=== PATIENT | male | born 1945 | race Caucasian/White ===

== ENCOUNTER 2017-02-01 09:56 | Inpatient (IN) ==
--- NOTE | 2017-01-31 21:13 | Discharge Summary ---
<Arabella Cage - Last Filed: 01/31/17 21:10> Date of Encounter: 01/31/17 - Discharge Diagnosis (1) Arthritis of right knee Priority: Primary Status: Chronic (2) IDANIA (obstructive sleep apnea) Priority: Secondary Status: Chronic (3) Diabetes mellitus Priority: Secondary Status: Acute Qualifiers: Diabetes mellitus type: type 2 Diabetes mellitus complication status: with unspecified complications Diabetes mellitus jail insulin use: without jail use Qualified Code(s): E11.8 - Type 2 diabetes mellitus with unspecified complications (4) BMI 40.0-44.9, adult Priority: Secondary Status: Chronic - Discharge Medications Home Medications: Aspirin Enteric Coated [Aspirin EC] 325 mg PO QAM #21 tablet. 01/31/17 [Rx] OxyCODONE Immed Rel [Roxicodone 5 MG] 5 - 10 mg PO Q6HR PRN #40 tablet 01/31/17 [Rx] Glimepiride [Amaryl] 4 mg PO BID 02/01/17 [History] Meloxicam [Mobic] 15 mg PO DAILY PRN 02/01/17 [History] Metformin HCl [Glucophage] 1,000 mg PO BID 02/01/17 [History] Allergies/Adverse Reactions: Allergies No Known Allergies Allergy (Unverified 11/28/16 10:55) Primary care physician: PCP NO - Patient Status Disposition: Home, Self-Care Condition: Good - Discharge Instructions Follow Up With: NO,PCP [Primary Care Provider] - - Hospital Course Hospital course: Mr. Chamorro is a 72 year old male - Time Spent with Patient Total time spent providing and/or coordinating discharge services: - VTE Documentation of Mechanical Device: Venous foot pump, device <Nick Mujica - Last Filed: 02/03/17 06:45> Date of Encounter: 02/03/17 Time of Encounter: 06:44 - Discharge Diagnosis (1) Arthritis of right knee Priority: Primary Status: Acute (2) IDANIA (obstructive sleep apnea) Priority: Secondary Status: Chronic (3) Diabetes mellitus Priority: Secondary Status: Chronic Qualifiers: Diabetes mellitus type: type 2 Diabetes mellitus complication status: with unspecified complications Diabetes mellitus exterminator helper insulin use: without exterminator helper use Qualified Code(s): E11.8 - Type 2 diabetes mellitus with unspecified complications (4) BMI 40.0-44.9, adult Priority: Secondary Status: Chronic (5) Status post total right knee replacement Priority: Primary Status: Acute Primary care physician: PCP NO - Patient Status Functional capacity at discharge: uses cane/walker Overall status at discharge: patient is progressing back to baseline - Hospital Course Hospital course: Mr. Chamorro is a 72 year old male Status post right total knee replacement. The patient had an uneventful postoperative course. They received antibiotics and physical therapy and were discharged in stable condition. There will follow -up in the office in 2 weeks. Patient will be on aspirin for DVT prophylaxis. - Time Spent with Patient Total time spent providing and/or coordinating discharge services:
--- NOTE | 2017-01-31 21:16 | Physician Discharge Referral ---
Home Health/Hosp Referral Info Transfer to: Home Health Attending Provider: Dr. Nick Mujica - Diagnosis (1) Status post total right knee replacement Priority: Primary Status: Acute (2) Arthritis of right knee Priority: Secondary Status: Chronic (3) IDANIA (obstructive sleep apnea) Priority: Secondary Status: Chronic (4) Diabetes mellitus Priority: Secondary Status: Chronic (5) BMI 40.0-44.9, adult Priority: Secondary Status: Chronic - Respiratory Orders Smoking Cessation: Smoking cessation has been advised. For more information, call the [place] Tobacco Quit Line at 8-481-QIIW-NOW. - Dressing/Wound Care Site: right knee Type of Dressing/Treatments w/Frequency: Opsite placed. Keep dressing intact until first follow up appointment. If > 50% saturated, notify office, remove dressing and place appropriate dressing back in place. Dressing is water resistant, not water-proof. OK to shower, but do not get dressing wet. - Diet/Nutrition Diet/Nutrition Orders: Regular - Activity Activity Orders: Ambulate, Chair, Walker Activity: List: Total Knee replacement Precautions x 6 weeks Apply cold therapy wrap 3-6x/day for 20 minutes at a time. Encourage ambulation throughout the day and incentive spirometer 10x/hour. Elevate affected extremity above heart as tolerated. Brace: Wear knee immobilizer at night x 2 weeks. - Services Needed Following services are medically necessary services: Physical Therapy, Occupational Therapy - Transfer Medications Prescriptions: OxyCODONE Immed Rel [Roxicodone 5 MG] 5 - 10 mg PO Q6HR PRN #40 tablet PRN Reason: Pain Aspirin Enteric Coated [Aspirin EC] 325 mg PO QAM #21 tablet. Home Medications: Aspirin Enteric Coated [Aspirin EC] 325 mg PO QAM #21 tablet. 01/31/17 [Rx] OxyCODONE Immed Rel [Roxicodone 5 MG] 5 - 10 mg PO Q6HR PRN #40 tablet 01/31/17 [Rx] Allergies/Adverse Reactions: Allergies No Known Allergies Allergy (Unverified 11/28/16 10:55) Certification: Further, I certify that my clinical findings support that this patient is homebound (i.e. absences from home require considerable and taxing effort and are for medical reasons or pentec[employer] services or infrequently or short duration when for other reasons) because: Homebound Reason: Post-surgery restriction and or conditions limit ability to leave home Attestation: My signature below is to certify that this patient is under my care and that I, or nurse practitioner, or physician music library assistant working with me, has a face-to- face encounter with this patient.
[2017-02-01] MEDS ORDERED: Gabapentin 300 MG CAPSULE PO ONE (10:26)
[2017-02-01] MEDS ORDERED: Famotidine 20 MG/2 ML VIAL IVP ONE (10:26)
[2017-02-01] MEDS ORDERED: Ringers Solution, Lactated 1,000 ML IVC SCH ×2 (10:30→15:04)
[2017-02-01] MEDS ORDERED: CeFAZolin Pre 3,000 MG/100 ML 3,000 MG/100 ML BAG IVPB ONE (10:30)
--- NOTE | 2017-02-01 10:40 | History & Physical Report ---
Date of Encounter: 02/01/17 Time of Encounter: 10:40 24 Hour HP Update - Instructions Instructions: If the History and Physical is less than 30 days old and was completed prior to A.M. admission and or procedure and has NOT been updated on calendar day of procedure please complete this update prior to performing procedure. - Update Patient reports changes in Medical Condition: No Changes in examination, assessment, or condition: No Changes in Medication: No Preop tests/diagnostics Reviewed: Yes Surgery Remains Indicated: Yes Consent for Planned Operative Procedure(s) Verified: Yes - Pre-Operative Checklist Preoperative Checklist Indicated: No Prophylactic Antibiotic Ordered: Yes Is VTE Prophylaxis Indicated?: Yes
[2017-02-01] MEDS ORDERED: *HR* Propofol 200 MG/20 ML VIAL IVP ONE (10:58)
[2017-02-01] MEDS ORDERED: Lidocaine -MPF 2% 2 ML VIAL ONE (10:59)
[2017-02-01] MEDS ORDERED: *HR* FentaNYL (PF) 100 MCG/2 ML VIAL ONE ×3 (10:59→12:52)
[2017-02-01] MEDS ORDERED: Ondansetron 4 MG/2 ML VIAL ONE (10:59)
[2017-02-01] MEDS ORDERED: Dexamethasone 4 MG/ML VIAL ONE (10:59)
[2017-02-01] MEDS ORDERED: *HR* Midazolam HCl 2 MG/2 ML VIAL ONE (10:59)
--- NOTE | 2017-02-01 11:11 | Anesthesia Evaluation PreOp ---
Date of Encounter: 02/01/17 Time of Encounter: 11:00 - Past History Planned Operation: Rt TKA Cardiac History: Denies any Significant Hx Pulmonary History: IDANIA Dx (CPAP 8) REVENUE DIRECTOR History: Denies Any Significant HX Other Medical History: Diabetes Type II, Other ([place]) Anesthesia History: No Prior Anesthetic Complications Alcohol Use: occasionally Drug use: none Medications and Allergies Aspirin Enteric Coated [Aspirin EC] 325 mg PO QAM #21 tablet. 01/31/17 [Rx] OxyCODONE Immed Rel [Roxicodone 5 MG] 5 - 10 mg PO Q6HR PRN #40 tablet 01/31/17 [Rx] Glimepiride [Amaryl] 4 mg PO BID 02/01/17 [History] Meloxicam [Mobic] 15 mg PO DAILY PRN 02/01/17 [History] Metformin HCl [Glucophage] 1,000 mg PO BID 02/01/17 [History] Allergies No Known Allergies Allergy (Unverified 11/28/16 10:55) - Meds/Allergy Pre-op Review Medications Reviewed: Yes Allergies Reviewed: Yes Beta Blockers on Current Med List: No Anesthesia Results - Labs Laboratory Tests 01/23/17 01/23/17 08:45 08:45 Hgb 15.0 Hct 44.9 Plt Count 182 Sodium 142 Potassium 4.0 BUN 13 Creatinine 0.94 - Imaging EKG: report reviewed Anesthesia Exam O2 Sat Height 71.5 cm Height 71.5 cm Height 71.5 cm Weight 145.15 kg Weight 145.15 kg Weight 145.15 kg O2 Sat by Pulse Oximetry 93 Vital Signs Temp Pulse Resp BP Pulse Ox 98.2 F 71 18 152/93 93 02/01/17 10:16 02/01/17 10:16 02/01/17 10:16 02/01/17 10:16 02/01/17 10:16 Height: 6'1 Weight: 320 lbs NPO (# of Hours): MN Pain Scale: 0 - HEENT Pupil (Motor): Pupils equal, EOMI Mallampati: III Teeth: Normal Oral Opening: Less than or equal to 3 - REVENUE DIRECTOR LOC: Oriented REVENUE DIRECTOR Motor: Normal RUE, Normal LUE, Normal RLE, Normal LLE, Normal Face REVENUE DIRECTOR Sensory: Normal: RUE, LUE, RLE, LLE, Face - Cardiac Rhythm: Regular Murmur: None JVD: No Carotid Bruit: No - Pulmonary Breath Sounds: bilateral Clear Respiratory Effort: Symmetrical Anesthesia Assess/Plan ASA Score: 3 ([place] DM IDANIA) Modified [place] Scale for Level of Consciousness: Cooperative, oriented, and tranquil Anesthetic Plan: General, Regional Monitoring Plan: Standard Monitors Recovery Plan: PACU (Discussed GA and RA, agrees to proceed)
[2017-02-01] MEDS ORDERED: Tetracaine/PF 20 MG/2 ML AMPUL ONE (11:36)
[2017-02-01] MEDS ORDERED: ROPIVACAINE HCL/PF 0.5% 30 ML VIAL ONE (11:36)
[2017-02-01] MEDS ORDERED: Bupivacaine/Clonidine Syringe 1 EACH SYRINGE ONE (11:37)
--- NOTE | 2017-02-01 12:09 | Anesthesia Procedures ---
Date of Encounter: 02/01/17 Time of Encounter: 11:08 Procedures: Anesthesia - Nerve Block Procedure Date: 02/01/17 Time: 12:00 Pre-op Diagnosis: Rt Knee OA Surgical Procedure: Rt TKA Checklist: Correct Patient Identifier Correct side: Right Blood Thinner: No Monitor Applied: EKG, BP, Pulse Oximetry Supplemental Oxygen via Nasal Cannula (L/min): 2 Sedation: Versed (mg): 2 Sedation: Fentanyl (mcg): 100 Indication: Post Op Analgesia Pre-op Neuro Deficits: No Block Type: Femoral, Other (IPACK) Catheter placed: No Depth at skin (cm): 3 Sterile Technique: Yes Ultrasound used: Yes Anatomy identified: Yes Visual spread of Local: Yes Neuro Stimulation: Yes Nerve Stimulator Range: >0.4 - 0.6 mA Blood on Needle Aspiration: No Smooth Injection of Local: Yes Pain with Injection of Local: No Prep: Chlorhexadine Needle: 22 x 50 mm Stimuplex Local: 0.25% Bupivicaine w/Clonidine 20 mcg/cc, Tetracaine (40), Ropivacaine ( 0.5%) Volume (cc): 30 Number of Attempts: 1 Complications: None/effective block Vitals: Vital Signs/O2 Sat/Glucose, Most Current Temp Pulse Resp BP Pulse Ox 02/01/17 11:56 60 18 148/91 98 02/01/17 11:38 59 16 137/96 98 02/01/17 10:16 98.2 F 71 18 152/93 93
[2017-02-01] MEDS ORDERED: *HR* Promethazine 25 MG/ML VIAL IVP PRN (12:51)
--- NOTE | 2017-02-01 13:18 | Orthopedic Operative Note ---
Date of procedure: 02/01/17 Pre-op diagnosis: right knee arthritis Post-op diagnosis: same Procedure: Procedure: Right Total knee replacement Estimated blood loss: 400 cc Hardware: Metal and polyethylene replacement. Arthrex Femur: 9 Tibia:8 PS insert: 11 Patella:40 Exam Under anesthesia: Loss of full extension 10 degrees Procedural Notes: Grade 4 arthritic changes all 3 compartments Operative procedure: The patient was brought to the operating room and placed on the operating room table. After general anesthesia was administered the operative knee was examined. Findings were noted in the exam under anesthesia. The operative extremity was prepped and draped in sterile surgical fashion. The patient received IV antibiotics prior to skin incision. A standard midline incision was made centered over the patella. The incision was made through the skin and subcutaneous tissue. A medial parapatellar tendon approach was performed. Care was taken to preserve tissue along the medial aspect of the patella. And to protect the patella tendon. The deep MCL was released off the medial tibia. The infra patella fat pad was excised. Knee was brought into flexion. Patient noted to have grade 4 arthrtic all three compartments. The entry hole was made for the intramedullary femoral guide. The guide was seated in 6 degrees of valgus. Anterior cut was made followed by the distal cut. The ACL the PCL the medial and the lateral menisci were excised. The tibia was subluxed forward. The entry hole was made for the intramedullary tibial guide. Guide was seated to resect 2 mm off the more abnormal side. The knee was brought into flexion the distal femur was sized 9. The femoral guide was seated , the anterior cut was made followed by the posterior condylar cut, followed by the chamfer cuts. The finishing guide was seated the box cut was made and the lug holes were drilled. The tibia was sized 8, the tibial tray was seated and prepared with the large drill followed by the fin cutter. Trial reduction revealed full extension no varus valgus instability with the appropriate 11 PS Diana. The patella was everted and cut was made at the level of the insertion of the quadriceps and patella tendon. The patella was sized to a 40 the guide was seated and the lug holes are drilled. Trial reduction revealed excellent patella tracking. All trial components were removed all bony surfaces were irrigated. The tibia was cemented first followed by the femur. the 11 PS Diana was seated and the knee was brought into full extension. The patella was cemented and held in place with the patellar holding clamp. After the cement had hardened, the knee sat for 2 minutes with a Betadine saline solution. The knee was then irrigated out with 2 L of pulse irrigation. The ROSANA Cage closed knee. The extensor mechanism was closed with #2 FiberWire suture and #2 PDS suture. The subcutaneous tissue was then irrigated and closed deep with #1 PDS suture superficially with 0 PDS suture and skin was closed with skin dominique. The patient was then placed in a sterile dressing and a postoperative brace extubated and transferred to recovery room in stable condition. Anesthesia: GETA Surgeon: Nick Mujica Condition: stable Disposition: PACU
[2017-02-01] MEDS: *HR* HYDROmorphone (PF) 1 MG/ML SYRINGE IVP PRN ×4 (13:56→14:14)
--- NOTE | 2017-02-01 14:25 | Anesthesia Evaluation Post Op ---
Date of Encounter: 02/01/17 Time of Encounter: 14:25 - Vital Signs Vital Signs: Vital Signs/O2 Sat/Glucose, Most Current Temp Pulse Resp BP Pulse Ox 02/01/17 14:15 64 22 129/87 97 02/01/17 14:05 70 17 147/79 100 02/01/17 13:55 97.0 F L 68 18 145/92 100 02/01/17 11:56 60 18 148/91 98 02/01/17 11:38 59 16 137/96 98 - Lungs Lungs: Clear Ascult./Percussion - Airway Airway: Non-obstructed - Cardiovascular Regular Rate - Mental Status Mental Status: Alert & Oriented, Answers Appropriately - Pain Pain Scale: 2 - Nausea Vomiting Nausea Vomiting: Not Present - Hydration Hydration: Ice chips - Discharge PostOp Status: Transfer Patient to floor
[2017-02-01 14:50] LABS: Hematocrit 44.9 % (37.5-50.1); Hemoglobin 14.7 g/dL (12.9-16.9)
[2017-02-01] MEDS ORDERED: Sennosides 8.6 MG TABLET PO PRN (15:04)
[2017-02-01] MEDS ORDERED: D5% in Water 1,000 ML IVC PRN (15:04)
[2017-02-01] MEDS ORDERED: Ondansetron 4 MG/2 ML VIAL IVP PRN (15:04)
[2017-02-01] MEDS ORDERED: *HR* Dextrose 50 % in Water (Syg) 50 ML SYRINGE IVP PRN (15:04)
[2017-02-01] MEDS ORDERED: Temazepam 15 MG CAPSULE PO PRN (15:04)
[2017-02-01] MEDS ORDERED: MOM Conc 10 ML UD.LIQ PO PRN (15:04)
[2017-02-01] MEDS ORDERED: Dextrose Gel 15 GM PO PRN ×2 (15:04)
[2017-02-01] MEDS ORDERED: Naloxone 0.4 MG/ML INJ IVP PRN (15:04)
[2017-02-01] MEDS ORDERED: *HR* OxyCODONE Immed Rel 5 MG TABLET PO PRN (15:04)
[2017-02-01] MEDS: *HR* Glimepiride 4 MG TABLET PO SCH (17:49)
[2017-02-01] MEDS: *HR* Metformin 500 MG TABLET PO SCH (17:49)
[2017-02-01] MEDS: *HR* Enoxaparin 30 MG/0.3 ML SYRINGE SQ SCH (17:50)
[2017-02-01] MEDS: Insulin LISPRO 300 UNITS/3 ML VIAL SQ SCH ×2 (17:50→20:39)
[2017-02-01] MEDS ORDERED: *HR* Enoxaparin 30 MG/0.3 ML SYRINGE SQ SCH (18:00)
[2017-02-01] MEDS: *HR* OxyCODONE Immed Rel 5 MG TABLET PO PRN ×2 (19:44→23:46)
[2017-02-01] MEDS: ceFAZolin 3,000 MG in D5% in Water 100 ML IVPB SCH (20:03)
[2017-02-02] MEDS: *HR* HYDROmorphone (PF) 1 MG/ML SYRINGE IVP PRN ×3 (01:32→21:02)
[2017-02-02] MEDS: ceFAZolin 3,000 MG in D5% in Water 100 ML IVPB SCH (04:15)
[2017-02-02 06:49] LABS: Hematocrit 37.9 % (37.5-50.1)
[2017-02-02 06:51] LABS: BUN/Creatinine Ratio 12 (6-26); Blood Urea Nitrogen 12 mg/dL (8-26); Calcium 8.4 mg/dL (8.6-10.8); Carbon Dioxide 24 mEq/L (19-29); Chloride 101 mEq/L (98-109); Glucose 168 mg/dL (70-99); Osmolality,Calculated 280 (280-300); Potassium 4.1 mEq/L (3.5-4.5); Sodium 133 mEq/L (136-145); eGFR For African Americans > 60 (> 60); eGFR For Non-African Americans > 60 (> 60)
[2017-02-02] MEDS: *HR* Enoxaparin 30 MG/0.3 ML SYRINGE SQ SCH ×2 (06:52→16:41)
[2017-02-02] MEDS: *HR* OxyCODONE Immed Rel 5 MG TABLET PO PRN ×4 (07:53→23:41)
[2017-02-02] MEDS: *HR* Glimepiride 4 MG TABLET PO SCH ×2 (07:53→16:40)
[2017-02-02] MEDS: *HR* Metformin 500 MG TABLET PO SCH ×2 (07:53→16:40)
[2017-02-02] MEDS: Insulin LISPRO 300 UNITS/3 ML VIAL SQ SCH ×4 (07:54→22:15)
--- NOTE | 2017-02-02 08:12 | Orthopedics Progress Note ---
Date of Encounter: 02/02/17 Time of Encounter: 08:12 - Assessment and Plan (1) Arthritis of right knee Current Visit: Yes Status: Acute (2) IDANIA (obstructive sleep apnea) Current Visit: Yes Status: Chronic (3) Diabetes mellitus Current Visit: Yes Status: Chronic Qualifiers: Diabetes mellitus type: type 2 Diabetes mellitus complication status: with unspecified complications Diabetes mellitus half-way insulin use: without exterminator helper use Qualified Code(s): E11.8 - Type 2 diabetes mellitus with unspecified complications (4) BMI 40.0-44.9, adult Current Visit: Yes Status: Chronic (5) Status post total right knee replacement Current Visit: Yes Status: Acute Subjective Interval history: Patient was seen this morning doing well without complaints. Afebrile vital signs stable. Operative extremity: Neurovascularly intact Dressing clean dry and intact Calves nontender Assessment and plan: Continue with postoperative care Hematocrit 37 Objective Vital signs: Vital Signs Temp Pulse Resp BP Pulse Ox 02/02/17 06:58 98.1 F 76 16 161/89 94 02/02/17 00:34 98.2 F 66 18 132/78 96 02/01/17 21:55 98.1 F 92 18 147/84 95 02/01/17 17:00 98.4 F 69 16 158/90 97 02/01/17 16:05 98.5 F 72 15 167/81 96 02/01/17 15:41 97.8 F 68 15 158/92 94 02/01/17 15:05 97.8 F 68 14 151/83 93 02/01/17 14:35 97.8 F 67 15 167/87 02/01/17 14:25 97.8 F 65 17 146/87 98 02/01/17 14:15 64 22 129/87 97 02/01/17 14:05 70 17 147/79 100 02/01/17 13:55 97.0 F L 68 18 145/92 100 02/01/17 11:56 60 18 148/91 98 02/01/17 11:38 59 16 137/96 98 02/01/17 10:16 98.2 F 71 18 152/93 93 Intake and Output 02/01/17 02/02/17 02/02/17 23:59 07:59 15:59 Intake Total 400 / 400 Output Total 1100 / 1100 Balance -700 / -700 Intake: IV Fluids 100 / 100 Ancef 3,000 MG In 100 / 100 Dextrose 5% 100 ML @ 200 mls/hr IVPB Q8H GARY Rx#: [id number] Oral 300 / 300 Output: Urine 1100 / 1100 Other: Blood Glucose* 246 160 - Labs CBC & BMP: 02/02/17 05:00 02/02/17 05:00 Labs: Abnormal lab results Sodium 133 mEq/L (136-145) L 02/02/17 05:00 Glucose 168 mg/dL (70-99) H 02/02/17 05:00 POC Glucose 246 (58-89) H 02/01/17 20:25 Calcium 8.4 mg/dL (8.6-10.8) L 02/02/17 05:00 - VTE Documentation of Mechanical Device: Venous foot pump, device Consult Discharge Plan - Plan Referrals: NO,PCP [Primary Care Provider] -
[2017-02-03] MEDS: *HR* HYDROmorphone (PF) 1 MG/ML SYRINGE IVP PRN (01:32)
[2017-02-03 01:38] LABS: Hematocrit 33.7 % (37.5-50.1); Hemoglobin 11.9 g/dL (12.9-16.9)
[2017-02-03 01:50] LABS: BUN/Creatinine Ratio 14 (6-26); Blood Urea Nitrogen 14 mg/dL (8-26); Calcium 8.5 mg/dL (8.6-10.8); Carbon Dioxide 26 mEq/L (19-29); Chloride 97 mEq/L (98-109); Glucose 230 mg/dL (70-99); Osmolality,Calculated 280 (280-300); Potassium 3.8 mEq/L (3.5-4.5); Sodium 131 mEq/L (136-145); eGFR For African Americans > 60 (> 60); eGFR For Non-African Americans > 60 (> 60)
[2017-02-03] MEDS: *HR* OxyCODONE Immed Rel 5 MG TABLET PO PRN ×5 (04:32→21:47)
[2017-02-03] MEDS: *HR* Enoxaparin 30 MG/0.3 ML SYRINGE SQ SCH ×2 (04:35→17:14)
--- NOTE | 2017-02-03 06:46 | Orthopedics Progress Note ---
Date of Encounter: 02/03/17 Time of Encounter: 06:46 - Assessment and Plan (1) Arthritis of right knee Current Visit: Yes Status: Acute (2) IDANIA (obstructive sleep apnea) Current Visit: Yes Status: Chronic (3) Diabetes mellitus Current Visit: Yes Status: Chronic Qualifiers: Diabetes mellitus type: type 2 Diabetes mellitus complication status: with unspecified complications Diabetes mellitus half-way insulin use: without regional intermodal truck driver use Qualified Code(s): E11.8 - Type 2 diabetes mellitus with unspecified complications (4) BMI 40.0-44.9, adult Current Visit: Yes Status: Chronic (5) Status post total right knee replacement Current Visit: Yes Status: Acute Subjective Interval history: Patient was seen this morning doing well without complaints. Afebrile vital signs stable. Operative extremity: Neurovascularly intact Dressing clean dry and intact Calves nontender Assessment and plan: Continue with postoperative care Hematocrit 33 stable for discharge today Objective Vital signs: Vital Signs Temp Pulse Resp BP Pulse Ox 02/03/17 04:55 98.0 F 86 15 167/84 86 02/02/17 23:28 98.4 F 85 15 134/65 92 02/02/17 20:00 94 02/02/17 19:07 98.3 F 82 15 132/75 94 02/02/17 15:05 98.1 F 76 15 128/76 94 02/02/17 11:21 97.6 F 72 18 156/68 95 02/02/17 06:58 98.1 F 76 16 161/89 94 Intake and Output 02/02/17 02/02/17 02/03/17 15:59 23:59 07:59 Intake Total 480 / 480 300 / 300 500 / 500 Output Total 700 / 700 675 / 675 550 / 550 Balance -220 / -220 -375 / -375 -50 / -50 Intake: Oral 480 / 480 300 / 300 500 / 500 Output: Urine 700 / 700 675 / 675 550 / 550 Other: Meal Breakfast Percent of Meal Consumed 100% # Voids 1 Weight 142.5 kg Blood Glucose* 191 181 - Labs CBC & BMP: 02/03/17 01:31 02/03/17 01:31 Labs: Abnormal lab results Hgb 11.9 g/dL (12.9-16.9) L 02/03/17 01:31 Hct 33.7 % (37.5-50.1) L 02/03/17 01:31 Sodium 131 mEq/L (136-145) L 02/03/17 01:31 Chloride 97 mEq/L (98-109) L 02/03/17 01:31 Glucose 230 mg/dL (70-99) H 02/03/17 01:31 POC Glucose 181 (58-89) H 02/02/17 19:15 Calcium 8.5 mg/dL (8.6-10.8) L 02/03/17 01:31 - VTE Documentation of Mechanical Device: Venous foot pump, device Consult Discharge Plan - Plan Referrals: NO,PCP [Primary Care Provider] -
[2017-02-03] MEDS: Insulin LISPRO 300 UNITS/3 ML VIAL SQ SCH ×4 (08:48→21:55)
[2017-02-03] MEDS: *HR* Glimepiride 4 MG TABLET PO SCH ×2 (08:49→17:14)
[2017-02-03] MEDS: *HR* Metformin 500 MG TABLET PO SCH ×2 (08:49→17:14)
--- NOTE | 2017-02-03 12:48 | Event Note ---
Date of Encounter: 02/03/17 Time of Encounter: 12:45 At bedside with patient. Patient states that he is doing better, states that he is starting to get the hang of the walker. Patient states that he has been having issues with bowel movements, states that he has been passing gas and is receiving the stool softener. Educated importance of drinking water to help with hydration and bowel movements. Patient states that he is planning to go home tomorrow after he rests up a little more and work with therapy some more.
[2017-02-04] MEDS: *HR* OxyCODONE Immed Rel 5 MG TABLET PO PRN (03:34)
[2017-02-04] MEDS: *HR* Enoxaparin 30 MG/0.3 ML SYRINGE SQ SCH (05:42)
[2017-02-04] MEDS: *HR* HYDROmorphone (PF) 1 MG/ML SYRINGE IVP PRN (05:42)
--- NOTE | 2017-02-04 07:57 | Orthopedics Progress Note ---
Date of Encounter: 02/04/17 Time of Encounter: 07:56 - Assessment and Plan (1) Arthritis of right knee Current Visit: Yes Status: Acute (2) IDANIA (obstructive sleep apnea) Current Visit: Yes Status: Chronic (3) Diabetes mellitus Current Visit: Yes Status: Chronic Qualifiers: Diabetes mellitus type: type 2 Diabetes mellitus complication status: with unspecified complications Diabetes mellitus [facility] insulin use: without terminal operator use Qualified Code(s): E11.8 - Type 2 diabetes mellitus with unspecified complications (4) BMI 40.0-44.9, adult Current Visit: Yes Status: Chronic (5) Status post total right knee replacement Current Visit: Yes Status: Acute Subjective Interval history: Patient was seen this morning doing well without complaints. Afebrile vital signs stable. Operative extremity: Neurovascularly intact Dressing clean dry and intact Calves nontender Assessment and plan: Continue with postoperative care Discharge held yesterday secondary to failure to progress with therapy will discharge today Objective Vital signs: Vital Signs Temp Pulse Resp BP Pulse Ox 02/04/17 06:25 97.5 F L 87 16 148/76 99 02/04/17 00:27 97.3 F L 85 18 150/70 98 02/03/17 21:45 97.5 F L 88 17 150/79 95 02/03/17 16:44 98.3 F 92 16 164/85 97 02/03/17 09:53 98.1 F 87 16 127/83 94 02/03/17 08:50 94 Intake and Output 02/03/17 02/03/17 02/04/17 15:59 23:59 07:59 Intake Total 240 / 240 810 / 810 30 / 30 Output Total 300 / 300 375 / 375 400 / 400 Balance -60 / -60 435 / 435 -370 / -370 Intake: Oral 240 / 240 810 / 810 30 / 30 Output: Urine 300 / 300 375 / 375 400 / 400 Other: Meal Lunch Percent of Meal Consumed 95% # Voids 1 1 Weight 142.1 kg Blood Glucose* 184 167 Patient Weight 02/04/17 23:59 Weight 142.1 kg - Labs CBC & BMP: 02/03/17 01:31 02/03/17 01:31 Labs: Abnormal lab results Hgb 11.9 g/dL (12.9-16.9) L 02/03/17 01:31 Hct 33.7 % (37.5-50.1) L 02/03/17 01:31 Sodium 131 mEq/L (136-145) L 02/03/17 01:31 Chloride 97 mEq/L (98-109) L 02/03/17 01:31 Glucose 230 mg/dL (70-99) H 02/03/17 01:31 POC Glucose 167 (58-89) H 02/03/17 20:36 Calcium 8.5 mg/dL (8.6-10.8) L 02/03/17 01:31 - VTE Documentation of Mechanical Device: Venous foot pump, device Consult Discharge Plan - Plan Referrals: NO,PCP [Primary Care Provider] -
[2017-02-04] MEDS: Insulin LISPRO 300 UNITS/3 ML VIAL SQ SCH ×2 (08:59→12:35)
[2017-02-04] MEDS: *HR* Metformin 500 MG TABLET PO SCH (09:00)
[2017-02-04] MEDS: *HR* Glimepiride 4 MG TABLET PO SCH (09:00)
[2017-02-04 12:33] VITALS: BP 143/78
== END 2017-02-04 13:21 | disposition home or self-care (01) | DRG 470 ==
LOC: SAMDAY 09:56 → 3NENU 15:31
PROVIDERS: ADMIT Orthopaedic Surgery; ATTEND Orthopaedic Surgery

== ENCOUNTER 2020-01-20 09:20 | Observation (INO) ==
[2020-01-20] MEDS ORDERED: CeFAZolin Syr 3,000MG/30 ML 3,000 MG/30 ML SYRINGE IVPB ONE (09:33)
[2020-01-20] MEDS ORDERED: Ringers Solution, Lactated 1,000 ML IVC SCH (09:45)
[2020-01-20] MEDS ORDERED: Acetaminophen IV 1,000 MG/100 ML INFUS..BTL IVPB ONE (10:05)
[2020-01-20] MEDS ORDERED: Pregabalin 75 MG CAPSULE PO ONE (10:05)
[2020-01-20] MEDS ORDERED: *HR* HYDROmorphone PF 0.5 MG/0.5 ML SYRINGE IVP PRN (10:06)
[2020-01-20] MEDS ORDERED: *HR* OxyCODONE Immed Rel 5 MG TABLET PO PRN (10:06)
[2020-01-20] MEDS ORDERED: Ondansetron 4 MG/2 ML VIAL IVP ONE (10:06)
[2020-01-20] MEDS ORDERED: *HR* Meperidine 25 MG/ML SYRINGE IVP PRN (10:06)
[2020-01-20] MEDS ORDERED: Ethanol\\Acetic Acid\\Na Ace\\Ben 1,000 ML IRRIG.SOLN IR ONE (10:48)
[2020-01-20] MEDS ORDERED: Vancomycin 1,000 MG VIAL ONE (10:48)
[2020-01-20] MEDS ORDERED: Tranexamic Acid 1,000 MG/10 ML VIAL ONE (11:17)
[2020-01-20] MEDS ORDERED: EPHEDrine 50 MG/ML VIAL ONE (12:05)
[2020-01-20] MEDS ORDERED: *HR* Phenylephrine 10 MG/ML VIAL ONE (12:13)
[2020-01-20 13:33] LABS: Hematocrit 42.5 % (37.5-50.1)
[2020-01-20] MEDS ORDERED: Naloxone 0.4 MG/ML INJ IVP PRN (14:07)
[2020-01-20] MEDS ORDERED: *HR* Promethazine 25 MG/ML VIAL IVP PRN (14:07)
[2020-01-20] MEDS ORDERED: D5% in Water 1,000 ML IVC PRN (14:07)
[2020-01-20] MEDS ORDERED: HYDROcodone BIT/Homatropine 5 MG TABLET PO PRN (14:07)
[2020-01-20] MEDS ORDERED: MOM Conc 10 ML UD.LIQ PO PRN (14:07)
[2020-01-20] MEDS ORDERED: Ondansetron 4 MG/2 ML VIAL IVP PRN (14:07)
[2020-01-20] MEDS ORDERED: Dextrose Gel 15 GM/37.5 ML TUBE PO PRN ×2 (14:07)
[2020-01-20] MEDS ORDERED: Sennosides 8.6 MG TABLET PO PRN (14:07)
[2020-01-20] MEDS ORDERED: *HR* Dextrose 50 % in Water (Vial) 50 ML VIAL IVP PRN (14:07)
[2020-01-20] MEDS: Insulin LISPRO 300 UNITS/3 ML VIAL SQ SCH ×3 (15:16→21:27)
[2020-01-20] MEDS: Ringers Solution, Lactated 1,000 ML IVC SCH (15:19)
[2020-01-20] MEDS: Ascorbic Acid 500 MG TABLET PO SCH ×3 (17:22→22:58)
[2020-01-20] MEDS: *HR* Glimepiride 4 MG TABLET PO SCH (17:29)
[2020-01-20] MEDS: ceFAZolin 3,000 MG in 0.9 % Sodium Chloride 100 ML IVPB SCH (18:26)
[2020-01-20] MEDS: *HR* OxyCODONE Immed Rel 5 MG TABLET PO PRN (18:31)
[2020-01-20] MEDS ORDERED: Magnesium Oxide 400 MG TABLET PO SCH (21:00)
[2020-01-20] MEDS: *HR* Metformin 500 MG TABLET PO SCH (22:58)
[2020-01-21] MEDS: Ringers Solution, Lactated 1,000 ML IVC SCH (01:33)
[2020-01-21] MEDS: ceFAZolin 3,000 MG in 0.9 % Sodium Chloride 100 ML IVPB SCH (01:34)
[2020-01-21] MEDS: *HR* OxyCODONE Immed Rel 5 MG TABLET PO PRN ×3 (05:22→15:53)
[2020-01-21 06:18] LABS: Basophils % 0.6 %; Eosinophils # 0.1 K/mcL (0.0-0.6); Eosinophils % 1.3 %; Hematocrit 35.2 % (37.5-50.1); Immature Granulocytes % 0.3 % (0-4); Lymphocytes # 1.5 K/mcL (0.6-4.6); Lymphocytes % 20.5 %; Mean Corpuscular HGB Conc 32.7 g/dL (31.6-35.5); Mean Corpuscular Hemoglobin 31.8 pg (28.0-33.3); Mean Corpuscular Volume 97.2 fL (83.0-100.0); Mean Platelet Volume 10.9 fL (9.4-12.4); Monocytes # 0.8 K/mcL (0.0-1.3); Monocytes % 11.7 %; Neutrophils # 4.6 K/mcL (1.6-8.9); Platelet Count 167 K/mcL (140-400); Red Blood Count 3.62 M/mcL (4.19-5.50); Red Cell Distribution Width 13.3 % (11.5-14.5); Segmented Neutrophils % 65.6 %; White Blood Count 7.1 K/mcL (4.3-11.1)
[2020-01-21 06:20] LABS: Hemoglobin 11.5 g/dL (12.9-16.9)
[2020-01-21 06:37] LABS: BUN/Creatinine Ratio 24 (6-26); Blood Urea Nitrogen 23 mg/dL (8-23); Calcium 8.4 mg/dL (8.6-10.3); Carbon Dioxide 25 mEq/L (23-29); Chloride 107 mEq/L (98-107); Glucose 106 mg/dL (70-105); Osmolality,Calculated 290 (280-300); Potassium 3.8 mEq/L (3.5-5.1); Sodium 138 mEq/L (136-145); eGFR For African Americans > 60 (> 60); eGFR For Non-African Americans > 60 (> 60)
[2020-01-21] MEDS: Ascorbic Acid 500 MG TABLET PO SCH ×3 (07:51→17:34)
[2020-01-21] MEDS: *HR* Glimepiride 4 MG TABLET PO SCH ×2 (07:51→17:36)
[2020-01-21] MEDS: Vitamin B Complex/Vit C/Vit E 1 EACH TABLET PO SCH (07:51)
[2020-01-21] MEDS: Cholecalciferol (D-3) 1,000 UNIT (25MCG) TABLET PO SCH (07:51)
[2020-01-21] MEDS: *HR* Metformin 500 MG TABLET PO SCH ×2 (07:52→19:47)
[2020-01-21] MEDS: Insulin LISPRO 300 UNITS/3 ML VIAL SQ SCH ×4 (07:52→21:21)
[2020-01-21] MEDS: Multivit/Ca/Min/Fe/FA 1 TAB TABLET PO SCH (07:52)
[2020-01-21] MEDS ORDERED: VITAMIN A 10000 UNIT PO SCH (09:00)
[2020-01-21] MEDS ORDERED: MAGNESIUM PO SCH (09:00)
[2020-01-21] MEDS ORDERED: TURMERIC ROOT EXTRACT 1000 MG PO SCH (09:00)
[2020-01-21] MEDS: Aspirin Enteric Coated 81 MG Tablet PO SCH (10:16)
[2020-01-21] MEDS ORDERED: *HR* LORazepam 2 MG/ML VIAL IVP PRN ×3 (11:29)
[2020-01-21] MEDS: Folic Acid 1 MG TABLET PO SCH (12:13)
[2020-01-21] MEDS ORDERED: Magnesium Oxide 400 MG TABLET PO SCH (21:00)
[2020-01-22 07:33] LABS: Basophils % 0.6 %; Eosinophils # 0.1 K/mcL (0.0-0.6); Hematocrit 32.5 % (37.5-50.1); Hemoglobin 10.9 g/dL (12.9-16.9); Immature Granulocytes % 0.4 % (0-4); Mean Corpuscular HGB Conc 33.5 g/dL (31.6-35.5); Mean Corpuscular Volume 95.3 fL (83.0-100.0); Mean Platelet Volume 10.7 fL (9.4-12.4); Monocytes # 0.8 K/mcL (0.0-1.3); Monocytes % 11.8 %; Neutrophils # 4.9 K/mcL (1.6-8.9); Platelet Count 158 K/mcL (140-400); Red Blood Count 3.41 M/mcL (4.19-5.50); Red Cell Distribution Width 13.3 % (11.5-14.5); Segmented Neutrophils % 72.2 %; White Blood Count 6.8 K/mcL (4.3-11.1)
[2020-01-22 07:53] LABS: BUN/Creatinine Ratio 19 (6-26); Blood Urea Nitrogen 17 mg/dL (8-23); Calcium 8.6 mg/dL (8.6-10.3); Carbon Dioxide 28 mEq/L (23-29); Chloride 107 mEq/L (98-107); Glucose 121 mg/dL (70-105); Osmolality,Calculated 291 (280-300); Potassium 3.8 mEq/L (3.5-5.1); Sodium 139 mEq/L (136-145); eGFR For African Americans > 60 (> 60); eGFR For Non-African Americans > 60 (> 60)
[2020-01-22] MEDS: Insulin LISPRO 300 UNITS/3 ML VIAL SQ SCH (09:01)
[2020-01-22] MEDS: *HR* OxyCODONE Immed Rel 5 MG TABLET PO PRN (09:11)
[2020-01-22] MEDS: Cholecalciferol (D-3) 1,000 UNIT (25MCG) TABLET PO SCH (09:12)
[2020-01-22] MEDS: Aspirin Enteric Coated 81 MG Tablet PO SCH (09:12)
[2020-01-22] MEDS: Ascorbic Acid 500 MG TABLET PO SCH (09:12)
[2020-01-22] MEDS: Multivit/Ca/Min/Fe/FA 1 TAB TABLET PO SCH (09:13)
[2020-01-22] MEDS: *HR* Metformin 500 MG TABLET PO SCH (09:13)
[2020-01-22] MEDS: Vitamin B Complex/Vit C/Vit E 1 EACH TABLET PO SCH (09:13)
[2020-01-22] MEDS: *HR* Glimepiride 4 MG TABLET PO SCH (09:14)
[2020-01-22] MEDS: Folic Acid 1 MG TABLET PO SCH (09:15)
[2020-01-22 10:24] VITALS: BP 149/85
== END 2020-01-22 14:15 | disposition home health service (06) ==
LOC: 3NENU 09:20 → SAMDAY 09:20 → 3NENU 13:29
PROVIDERS: ADMIT Orthopaedic Surgery; ATTEND Orthopaedic Surgery